=== PATIENT | male | born 1975 | race Caucasian/White ===

== ENCOUNTER 2017-04-11 18:59 | Emergency (ER) | payer BC, OTHER ==
[~2017-04-11] VITALS: Ht 162.6 cm; Wt 82.8 kg
[~2017-04-11 18:59] MED LIST: FEXO60TA
[2017-04-11] MEDS ORDERED: ASPIRIN 81 MG TABLET CHEW PO ONE (19:30)
[2017-04-11] MEDS ORDERED: SODIUM CHLORIDE FLUSH 10ML SYR IVF ONE (19:30)
[2017-04-11] MEDS ORDERED: PLEASE ENTER HEIGHT AND WEIGHT MC SCH (19:30)
[2017-04-11 19:49] LABS: BLOOD UREA NITROGEN 22 mg/dL (7-18)
[2017-04-11 19:54] LABS: IS PT STATUS REG ER OR PRE ER? YES
[2017-04-11] MEDS ORDERED: OXYcodone/APAP 5/325MG TABLET PO ONE (20:30)
[2017-04-11] MEDS ORDERED: KETOROLAC 30 MG/1 ML IM ONE (20:30)
[2017-04-11] MEDS ORDERED: OXYcodone/APAP 5/325MG TABLET ONE (20:41)
[2017-04-11] MEDS ORDERED: KETOROLAC 30 MG/1 ML ONE (20:42)
[2017-04-11 21:05] VITALS: BP 125/75
== END 2017-04-11 21:07 | disposition home or self-care (01) ==
LOC: ED 21:02
DX: R07.89 Other chest pain (principal)
CPT/HCPCS: 36415; 71010; 80048; 82040; 84484; 85025; 93005; 96372; 99285; J1885